=== PATIENT | male | born 1995 | race Caucasian/White ===

== ENCOUNTER 2017-11-17 22:57 | Emergency (ER) | payer SELFPAY ==
[~2017-11-17] VITALS: Ht 167.6 cm; Wt 93.4 kg
[2017-11-17 23:10] VITALS: BP 145/83; Ht 167.6 cm; Wt 93.4 kg
== END 2017-11-17 23:44 | disposition home or self-care (01) ==
LOC: ED 22:57
DX: J30.9 Allergic rhinitis, unspecified (principal); R04.0 Epistaxis

== ENCOUNTER 2018-02-16 13:07 | Emergency (ER) | payer SELFPAY ==
[~2018-02-16] VITALS: Ht 167.6 cm; Wt 94.3 kg
[2018-02-16 13:25] VITALS: Ht 167.6 cm; Wt 94.3 kg
[2018-02-16 15:26] LABS: UA SPECIFIC GRAVITY >=1.030 (1.005-1.035); microscopic required? YES; urine erythrocyte 3+ (NEGATIVE)
[2018-02-16 15:41] VITALS: BP 153/78
== END 2018-02-16 15:41 | disposition home or self-care (01) ==
LOC: ED 13:07
PROVIDERS: Emergency Medicine
DX: R10.32 Left lower quadrant pain (principal); R31.9 Hematuria, unspecified; E11.9 Type 2 diabetes mellitus without complications
CPT/HCPCS: J1885; J7030; Q0092; Q0162

== ENCOUNTER 2018-07-02 16:57 | Emergency (ER) | payer SELFPAY ==
[~2018-07-02] VITALS: Ht 167.6 cm; Wt 94.3 kg
[2018-07-02 17:05] VITALS: Ht 167.6 cm; Wt 94.3 kg
[2018-07-02 18:12] LABS: BASOPHIL % 0.4 % (0-2); PLATELET COUNT 196 x10^3mcL (130-400); RED CELL DISTRIBUTION WIDTH 13.9 % (11.5-14.5)
[2018-07-02 18:16] LABS: UA SPECIFIC GRAVITY >=1.030 (1.005-1.035); microscopic required? YES; urine erythrocyte 3+ (NEGATIVE)
[2018-07-02 18:16] LABS: CARBON DIOXIDE 25.2 mmol/L (21-32); CHLORIDE SERUM 105 mmol/L (98-107); CREATININE SERUM 1.1 mg/dL (0.7-1.3); GFR1 > 60 mL/min; GLUCOSE SERUM 115 mg/dL (74-106); POTASSIUM SERUM 4.1 mmol/L (3.5-5.1); SODIUM SERUM 140 mmol/L (136-145)
[2018-07-02 18:20] LABS: ALKALINE PHOSPHATASE 76 U/L (46-116); ALT/SGPT 198 U/L (16-63); AMYLASE 28 U/L (25-115); AST/SGOT 72 U/L (15-37); BILIRUBIN TOTAL 0.33 mg/dL (0.20-1.00); LIPASE 97 IU/L (73-393)
[2018-07-02 18:21] LABS: TOTAL PROTEIN, SERUM 8.4 g/dL (6.4-8.2)
[2018-07-02 19:05] VITALS: BP 161/102
== END 2018-07-02 19:05 | disposition home or self-care (01) ==
LOC: ED 16:57
PROVIDERS: Specialist
DX: N21.0 Calculus in bladder (principal); R11.0 Nausea
CPT/HCPCS: 83880; J1885; J2765; J3010; J7030